=== PATIENT | female | born 1955 | race Caucasian/White ===

== ENCOUNTER 2016-12-09 00:48 | Emergency (ER) | payer OTHER ==
[~2016-12-09] VITALS: Ht 160 cm; Wt 66.3 kg
[2016-12-09] MEDS ORDERED: PERCOCET 5/31 TABLET PO (02:45)
[2016-12-09 03:00] VITALS: BP 131/90
== END 2016-12-09 03:01 | disposition home or self-care (01) ==
LOC: EME 00:48
DX: S22.41XA Multiple fractures of ribs, right side, initial encounter for closed fracture (principal); W06.XXXA Fall from bed, initial encounter; K21.9 Gastro-esophageal reflux disease without esophagitis; Z87.891 Personal history of nicotine dependence
CPT/HCPCS: 71101; 99281; 99285